=== PATIENT | male | born 1985 | race Caucasian/White ===

== ENCOUNTER → 2018-11-29 | Outpatient (CLI) | payer OTHER ==
[~2018-11-29] MED LIST: CEPH-507 PO; HYDR-3876 PO; MULT-834 PO
--- NOTE | 2018-11-29 16:13 | Diagnostic Imaging Report ---
INDICATION: Remote right shoulder injury with recurrent intermittent shoulder pain. FINDINGS: The AC joint alignment and glenohumeral joint alignment appear appropriate. There are no findings of glenohumeral joint dislocation. There is minimal early spurring at the AC joint. There are no findings of an acute fracture. There is no suspicious bone lesion. The right lung is clear. 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 Dictated by: Dictated on workstation # [id number]
== END ==
LOC: RAD FS 13:12
PROVIDERS: ATTEND Nurse Practitioner
DX: S49.91XA Unspecified injury of right shoulder and upper arm, initial encounter (principal)
CPT/HCPCS: 73030

== ENCOUNTER 2019-04-06 08:56 | Outpatient (RCR) | payer OTHER | END 2019-07-05 | disposition home or self-care (01) | LOC: LAB 08:56 | PROVIDERS: ATTEND Urology | DX: I86.1 Scrotal varices (principal) | CPT/HCPCS: 89320 ==

== ENCOUNTER → 2020-03-21 | Outpatient (CLI) | payer OTHER ==
--- NOTE | 2020-03-21 09:32 | Diagnostic Imaging Report ---
EXAMINATION: Bilateral shoulders at 8:50 AM INDICATION: Chronic shoulder pain 3 views of each shoulder joint were obtained. There is no fracture, dislocation or acute bony abnormality evident. There is only mild degenerative changes involving each shoulder joint. The degenerative changes of the right shoulder joint seem similar to the prior exam of 11/29/2018. The soft tissues are unremarkable. IMPRESSION: 1. There is no evidence for an acute bony abnormality. 2. If there is clinical concern regarding an injury to the rotator cuff or labrum, then MRI would be recommended for further study. Dictated by: Dictated on workstation # [id number]
== END ==
LOC: RAD FS 08:44
PROVIDERS: ATTEND Nurse Practitioner
DX: M25.512 Pain in left shoulder (principal); M25.511 Pain in right shoulder; G89.29 Other chronic pain